=== PATIENT | male | born 1980 | race Caucasian/White ===

== ENCOUNTER → 2020-02-29 | Outpatient (CLI) | payer OTHER ==
[2020-02-29 14:54] LABS: BASOPHILS ABSOLUTE AUTO 0.03 K/mm3 (0.00-0.23); BASOPHILS PERCENT AUTO 1 % (0-2); EOSINOPHILS PERCENT AUTO 3 % (0-6); Hematocrit 45.6 % (37.0-53.0); Hemoglobin 15.6 g/dL (13.5-17.5); IMMATURE GRAN ABSOLUTE AUTO 0.01 K/mm3 (0.00-0.10); IMMATURE GRAN PERCENT AUTO 0 % (0-1); LYMPHOCYTES ABSOLUTE AUTO 1.82 K/mm3 (0.84-5.20); LYMPHOCYTES PERCENT AUTO 29 % (21-46); MONOCYTES ABSOLUTE AUTO 0.49 K/mm3 (0.16-1.47); MONOCYTES PERCENT AUTO 8 % (4-13); Mean Corpuscular HGB Conc 34.2 g/dL (31.5-36.5); Mean Corpuscular Volume 88 fL (80-100); Mean Platelet Volume 11.8 fL (9.1-12.4); NEUTROPHILS PERCENT AUTO 60 % (41-73); Platelet Count 217 K/mm3 (150-400); RDW Coefficient Variation 11.7 % (11.7-14.2); RDW Standard Deviation 37.7 fL (35.1-46.3); White Blood Cell Count 6.35 K/mm3 (4.00-11.30)
[2020-02-29 15:43] LABS: Alanine Aminotransfer (ALT/SGP 14 U/L (12-78); Albumin, Blood 3.5 g/dL (3.4-5.0); Alk Phos 63 U/L (50-136); Anion Gap 4 mmol/L (6-16); Aspartate Aminotrans (AST/SGOT 17 U/L (12-37); Bilirubin, Total 0.3 mg/dL (0.1-1.0); Blood Urea Nitrogen 13 mg/dL (8-24); Bun/Creatinine Ratio 12.4 (12.0-20.0); CO2, Blood 26 mmol/L (21-32); Calcium, Blood 8.5 mg/dL (8.5-10.1); Chloride, Blood 110 mmol/L (98-108); Cholesterol 173 mg/dL (50-200); Creatinine, Blood 1.05 mg/dL (0.60-1.20); Globulin, Blood 3.6 g/dL (2.2-4.0); Glomerular Filtration Rate >60 (60-); Glucose, Blood 89 mg/dL (70-99); HDL Cholesterol 43 mg/dL (>39); Low Density Lipoprotein Chol 86 mg/dL (0-110); Sodium, Blood 140 mmol/L (136-145); Total Protein, Blood 7.1 g/dL (6.4-8.2); Triglycerides 222 mg/dL (30-140); Very Low Density Lipoprot Chol 44 mg/dL (6-28)
== END | disposition home or self-care (01) ==
LOC: LAB SHORT 14:01 → LAB 14:01 → EDSTATUS 02-28 10:35 → LAB FUT 02-28 10:35
PROVIDERS: Physician Assistant
DX: Z13.6 Encounter for screening for cardiovascular disorders (principal); Z13.29 Encounter for screening for other suspected endocrine disorder
CPT/HCPCS: 80053; 80061; 84443; 85025

== ENCOUNTER 2021-03-13 07:42 | Day surgery (SDC) | payer OTHER ==
[~2021-03-13] VITALS: Ht 188 cm; Wt 95.2 kg
[~2021-03-13 07:42] MED LIST: OMEP20ER PO
--- NOTE | 2021-03-13 09:18 | NUR ---
03/13/21 0918 Enrrique Laura History, Chart, Medications and Allergies reviewed before start of procedure. MONITOR INTACT WITH CONTINUOUS PULSE OXIMETRY AND INTERMITTENT BP. 3-LEAD EKG REVIEWED WITH PHYSICIAN PRIOR TO START OF PROCEDURE. O2 VIA N/C INTACT THROUGHOUT SEDATION/PROCEDURE. PATIENT DETERMINED TO BE ASA APPROPRIATE FOR PROPOFOL SEDATION PRIOR TO START OF PROCEDURE BY DR. CERVANTES.
--- NOTE | 2021-03-13 10:04 | NUR ---
PT ALERT AND ORIENTED. DRINKS PO FLUIDS s ABD PAIN OR CRAMPING. GIVEN DC INSTRUCTIONS, VERBALIZES AN UNDERSTANDING. NO QUESTIONS. IV DC'D, CATH INTACT AND PRESSURE DRESSING APPLIED. CALLED FOR [facility]. PT DRESSES s ASSISTANCE. OTD IN NAD VIA WC, ESCORTED BY MICKIE.
== END 2021-03-13 22:42 | disposition home or self-care (01) ==
LOC: ORSCMMR 07:42 → ORD 08:30 → ORSCMMR 08:30
PROVIDERS: Internal Medicine Gastroenterology
PROC: 0DBB8ZX Excision of Ileum, Via Natural or Artificial Opening Endoscopic, Diagnostic (ICD-10-PCS; principal; 2021-03-13 08:30)
PROC: 0DBK8ZX Excision of Ascending Colon, Via Natural or Artificial Opening Endoscopic, Diagnostic (ICD-10-PCS; principal; 2021-03-13 08:30)
PROC: 0DBN8ZX Excision of Sigmoid Colon, Via Natural or Artificial Opening Endoscopic, Diagnostic (ICD-10-PCS; principal; 2021-03-13 08:30)
PROC: 0DBL8ZX Excision of Transverse Colon, Via Natural or Artificial Opening Endoscopic, Diagnostic (ICD-10-PCS; principal; 2021-03-13 08:30)
DX: R19.7 Diarrhea, unspecified (principal); F41.1 Generalized anxiety disorder; Z79.899 Other long term (current) drug therapy
CPT/HCPCS: 88305; J2250; J2704; J7120

== ENCOUNTER → 2024-12-28 | Outpatient (CLI) | payer OTHER ==
[2024-12-28 18:15] LABS: Adenovirus F 40/41 Not Detected (NOT DETECT); Astrovirus Not Detected (NOT DETECT); Campylobacter Sp Not Detected (NOT DETECT); Cryptosporidium Not Detected (NOT DETECT); Cyclospora Cayetanensis Not Detected (NOT DETECT); E. Coli O157 Not Detected (NOT DETECT); Entamoeba Histolytica Not Detected (NOT DETECT); Enteroaggregative E. coli-EAEC Not Detected (NOT DETECT); Enteropathogenic E. coli-EPEC Not Detected (NOT DETECT); Enterotoxigenic E. coli-ETEC Not Detected (NOT DETECT); Giardia Lamblia Not Detected (NOT DETECT); Norovirus GI/GII Not Detected (NOT DETECT); Plesiomonas Shigelloides Not Detected (NOT DETECT); Rotavirus A Not Detected (NOT DETECT); Salmonella Sp Not Detected (NOT DETECT); Sapovirus Not Detected (NOT DETECT); Shiga Toxin-prod E. coli-STEC Not Detected (NOT DETECT); Shigella/Enteroin E. coli-EIEC Not Detected (NOT DETECT); Vibrio Cholerae Not Detected (NOT DETECT); Vibrio Sp Not Detected (NOT DETECT); Yersinia Enterocolitica Not Detected (NOT DETECT)
== END ==
LOC: LAB SHORT 11:48 → LAB 11:48 → EDSTATUS 16:32
PROVIDERS: Family Medicine
DX: Z30.09 Encounter for other general counseling and advice on contraception (principal); R19.7 Diarrhea, unspecified
CPT/HCPCS: 87507